=== PATIENT | male | born 2000 | race Caucasian/White ===

== ENCOUNTER 2025-04-28 01:57 | Emergency (ER) | payer SELFPAY ==
[2025-04-28] MEDS ORDERED: Glucagon 1 MG/ML KIT ONE (02:13)
[2025-04-28] MEDS ORDERED: Ondansetron PF 4 MG/2 ML Vial ONE (02:13)
== END 2025-04-28 03:35 | disposition home or self-care (01) ==
LOC: ERS 01:57
DX: K56.49 Other impaction of intestine (principal)
CPT/HCPCS: 70360; 71046; 96374; 96375; J1611; J2405